=== PATIENT | male | born 1995 | race Caucasian/White ===

== ENCOUNTER 2019-04-21 17:31 | Emergency (ER) | payer SELFPAY ==
--- NOTE | 2019-04-21 17:43 | EDM.PDOC ---
ED HPI GENERAL MEDICAL PROBLEM - General Stated Complaint: MEDICAL CLEARANCE Time Seen by Provider: 04/21/19 17:40 Source of Information: Reports: Patient History Limitations: Reports: No Limitations - History of Present Illness INITIAL COMMENTS - FREE TEXT/NARRATIVE: HISTORY AND PHYSICAL: History of present illness: Patient is a 24-year-old male who presents to the emergency room with law enforcement for medical clearance. Patient states he is concerned that he might detox from methamphetamine. He states he last used yesterday. He also states he is "prediabetic" and is concerned that he may have issues with his blood sugar. He has never had any medications for his "prediabetes". He states he is otherwise healthy. Denies any alcohol use. Other than his concerns that he "may detox" he has no other concerns or complaints today. Patient denies any fever, chills, headache, change in vision, syncope or near syncope. Denies any chest pain, back pain, shortness of breath or cough. Denies any abdominal pain, nausea, vomiting, diarrhea, constipation or dysuria. Has not noted any blood in urine or stool. Patient has been eating and drinking appropriately. Review of systems: As per history of present illness and below otherwise all systems reviewed and negative. Past medical history: As per history of present illness and as reviewed below otherwise noncontributory. Surgical history: As per history of present illness and as reviewed below otherwise noncontributory. Social history: See social history for further information Family history: As per history of present illness and as reviewed below otherwise noncontributory. Physical exam: General: Well developed and well nourished 24 year old male. Alert and oriented. Nontoxic-appearing and in no acute distress. Patient is answering questions appropriately and vital signs are stable. HEENT: Atraumatic, normocephalic, pupils equal and reactive bilaterally, negative for conjunctival pallor or scleral icterus, mucous membranes moist, TMs normal bilaterally, throat clear, neck supple, nontender, trachea midline. No drooling or trismus noted. No meningeal signs. No hot potato voice noted. Lungs: Clear to auscultation, breath sounds equal bilaterally, chest nontender. Heart: S1S2, regular rate and rhythm without overt murmur Abdomen: Soft, nondistended, nontender. Negative for masses or hepatosplenomegaly. Negative for costovertebral tenderness. Pelvis: Stable nontender. Skin: Intact, warm, dry. No lesions or rashes noted. Extremities: Atraumatic, moves all extremities per self without difficulty or deficits, negative for cords or calf pain. Neurovascular unremarkable. Neuro: Awake, alert, oriented. Cranial nerves II through XII unremarkable. Cerebellum unremarkable. Motor and sensory unremarkable throughout. Exam nonfocal. Notes: My physical exam is within normal limits. He is resting calmly and answering questions appropriately. He has no tremors and other than the concern of possibly detoxing from methamphetamine; he offers no concerns or complaints. patient safety officer has no concerns or requests for eval other than the concern of "prediabetes". Blood sugar is within normal limits. Supportive care measures were reviewed and discussed. Voices understanding and is agreeable to plan of care. Denies any further questions or concerns at this time. Diagnostics: Blood glucose Therapeutics: None Prescription: None Impression: Encounter for medical screening exam Plan: 1. Stop using drugs. 2. You may use Tylenol and/or Ibuprofen as needed for pain/fever. 3. Follow up with your primary care provider as we discussed. Return to the ED as needed as discussed. Definitive disposition and diagnosis as appropriate pending reevaluation and review of above. - Related Data Allergies Allergy/AdvReac Type Severity Reaction Status Date / Time No Known Allergies Allergy Verified 04/21/19 17:46 Home Meds: Home Meds . [No Known Home Meds] 04/21/19 [History] ED ROS GENERAL - Review of Systems Review Of Systems: Comprehensive ROS is negative, except as noted in HPI. ED EXAM, GENERAL - Physical Exam Exam: See Below (See dictation) Course - Vital Signs Last Recorded V/S: Last Vital Signs Temp 97.2 F 04/21/19 17:47 Pulse 78 04/21/19 17:47 Resp 15 04/21/19 17:47 BP 118/69 04/21/19 17:47 Pulse Ox 100 04/21/19 17:47 - Orders/Labs/Meds Orders: Active Orders 24 hr Category Date Time Status Glucose [Blood Glucose Check, Bedside] [RC] ONETIME Care 04/21/19 17:48 Active Labs: Laboratory Tests 04/21/19 Range/Units 17:58 POC Glucose 86 (60-110) mg/dL Departure - Departure Time of Disposition: 17:53 Disposition: Home, Self-Care 01 Clinical Impression: Encounter for medical screening examination - Discharge Information Instructions: Medical Screening Exam Referrals: PCP,None [Primary Care Provider] - Forms: ED Department Discharge Additional Instructions: The following information is given to patients seen in the emergency department who are being discharged to home. This information is to outline your options for follow-up care. We provide all patients seen in our emergency department with a follow-up referral. The need for follow-up, as well as the timing and circumstances, are variable depending upon the specifics of your emergency department visit. If you don't have a primary care physician on staff, we will provide you with a referral. We always advise you to contact your personal physician following an emergency department visit to inform them of the circumstance of the visit and for follow-up with them and/or the need for any referrals to a consulting specialist. The emergency department will also refer you to a specialist when appropriate. This referral assures that you have the opportunity for follow-up care with a specialist. All of these measure are taken in an effort to provide you with optimal care, which includes your follow-up. Under all circumstances we always encourage you to contact your private physician who remains a resource for coordinating your care. When calling for follow-up care, please make the office aware that this follow-up is from your recent emergency room visit. If for any reason you are refused follow-up, please contact the [facility] Emergency Department at and asked to speak to the emergency department charge nurse. [facility] [address] [place] [address] [id number] [address] [address] 1. Stop using drugs. 2. You may use Tylenol and/or Ibuprofen as needed for pain/fever. 3. Follow up with your primary care provider as we discussed. Return to the ED as needed as discussed. Sepsis Event Note - Focused Exam Vital Signs: Vital Signs Temp Pulse Resp BP Pulse Ox 04/21/19 17:47 97.2 F 78 15 118/69 100 Date Exam was Performed: 04/21/19 Time Exam was Performed: 18:02 - My Orders Last 24 Hours: My Active Orders 04/21/19 17:48 Glucose [Blood Glucose Check, Bedside] [RC] ONETIME - Assessment/Plan Last 24 Hours: My Active Orders 04/21/19 17:48 Glucose [Blood Glucose Check, Bedside] [RC] ONETIME
== END 2019-04-21 18:04 | disposition home or self-care (01) ==
LOC: MW.ED 17:31
DX: Z02.89 Encounter for other administrative examinations (principal)
CPT/HCPCS: 82962; 99283